=== PATIENT | female | born 1950 | race African-American/Black ===

== ENCOUNTER 2020-03-12 09:57 | Inpatient (IN) ==
[2020-03-12] MEDS ORDERED: GLUCAGON 1 MG VIAL IM PRN ×2 (15:44)
[2020-03-12] MEDS ORDERED: ONDANSETRON 4 MG/2 ML VIAL IV PRN (15:44)
[2020-03-12] MEDS ORDERED: DEXTROSE 50% 25 GM/50 ML VIAL IV PRN ×2 (15:44)
[2020-03-12 16:24] LABS: Basophils % 0.7 % (0.0-0.8); Eosinophils # 0.4 10*3/uL (0.0-0.87); Eosinophils % 5.8 % (0.00-10.9); Hematocrit 34.7 VOL% (35.7-47.0); Immature Granulocytes % 0.3 %; Immature Granulocytes Absolute 0.02 #; Lymphocytes # 2.1 10*3/uL (1.4-4.0); Mean Corpuscular HGB Conc 31.7 GM/DL (32-36); Mean Corpuscular Volume 87.8 FL (87-102); Mean Platelet Volume 12.6 FL (9.6-12.0); Neutrophils % 46.2 % (38.7-73.9); Platelet Count 195 T/CUMM (130-400); Red Blood Count 3.95 MC/CUMM (3.8-5.5); White Blood Count 6.1 T/CUMM (4-12)
[2020-03-12 16:55] LABS: Risk Ratio 6.14; VLDL CHOLESTEROL 42.2 MG/DL
[2020-03-12 17:01] LABS: Alanine Aminotransferase 23 U/L (13-56); Albumin 3.6 G/DL (3.4-5.0); Alkaline Phosphatase 166 U/L (45-117); Aspartate Amino Transferase 24 U/L (0-37); Bilirubin,Total < 0.39 MG/DL (0.2-1.0); Blood Urea Nitrogen 81 MG/DL (7-18); Calcium 9.9 MG/DL (8.5-10.1); Estimated Glom Filtration Rate 7 ML/MIN; Glucose 164 MG/DL (74-106); Osmolality,Calculated 297.1 MOS/KG (273-304); Total Protein 8.4 G/DL (6.4-8.3)
[2020-03-12] MEDS: INSULIN LISPRO 100 UNIT/ML SUBCUT SCH ×2 (17:22→23:15)
[2020-03-12] MEDS ORDERED: SODIUM POLYSTYRENE SULFATE 15 GM/60 ML BOTTLE PO ONE (17:40)
[2020-03-12] MEDS: SODIUM CHLORIDE 0.9% 1,000 ML IV SCH (22:47)
[2020-03-12] MEDS: hydrALAZINE 20 MG/1 ML VIAL IV PRN (23:22)
[2020-03-13 08:34] LABS: Basophils % 0.6 % (0.0-0.8); Eosinophils # 0.4 10*3/uL (0.0-0.87); Eosinophils % 6.5 % (0.00-10.9); Hematocrit 32.5 VOL% (35.7-47.0); Hemoglobin 10.1 GM/DL (12.0-16.0); Immature Granulocytes % 0.1 %; Immature Granulocytes Absolute 0.01 #; Lymphocytes # 2.8 10*3/uL (1.4-4.0); Lymphocytes % 40.4 % (21.3-54.2); Mean Corpuscular HGB Conc 31.1 GM/DL (32-36); Mean Platelet Volume 11.8 FL (9.6-12.0); Monocytes % 12.6 % (1.7-12.7); Neutrophils % 39.8 % (38.7-73.9); Platelet Count 176 T/CUMM (130-400); Red Blood Count 3.65 MC/CUMM (3.8-5.5); Red Cell Distribution Width 14.7 % (9.3-17.3); White Blood Count 6.8 T/CUMM (4-12)
[2020-03-13 08:56] LABS: Calcium 9.5 MG/DL (8.5-10.1); Osmolality,Calculated 304.8 MOS/KG (273-304)
[2020-03-13] MEDS: hydrALAZINE 20 MG/1 ML VIAL IV PRN (09:33)
[2020-03-13] MEDS: INSULIN LISPRO 100 UNIT/ML SUBCUT SCH ×4 (09:36→21:34)
[2020-03-13] MEDS: SODIUM CHLORIDE 0.9% 1,000 ML IV SCH (10:35)
[2020-03-13] MEDS ORDERED: ALPRAZolam 0.5 MG TABLET PO PRN (13:18)
[2020-03-13] MEDS ORDERED: NON-FORMULARY MEDICATION (Levalbuterol Tartrate [Xopenex Hfa] 1 PUFF) INH SCH (13:30)
[2020-03-13] MEDS: NEBIVOLOL 10 MG TABLET PO SCH (14:57)
[2020-03-13] MEDS: amLODIPine 5 MG TABLET PO SCH (14:57)
[2020-03-13] MEDS: HydrOXYzine PAMOATE 25 MG CAPSULE PO SCH ×2 (17:33→21:34)
[2020-03-13] MEDS: ATORVASTATIN 40 MG TABLET PO SCH (21:34)
[2020-03-14] MEDS: SODIUM CHLORIDE 0.9% 1,000 ML IV SCH ×2 (04:31→19:47)
[2020-03-14 06:34] LABS: Basophils # 0.1 10*3/uL (0.0-0.2); Basophils % 0.9 % (0.0-0.8); Eosinophils # 0.3 10*3/uL (0.0-0.87); Hematocrit 28.8 VOL% (35.7-47.0); Hemoglobin 8.9 GM/DL (12.0-16.0); Immature Granulocytes % 0.2 %; Immature Granulocytes Absolute 0.01 #; Lymphocytes # 2.5 10*3/uL (1.4-4.0); Lymphocytes % 43.5 % (21.3-54.2); Mean Corpuscular HGB Conc 30.9 GM/DL (32-36); Mean Corpuscular Volume 88.6 FL (87-102); Mean Platelet Volume 11.9 FL (9.6-12.0); Monocytes % 12.7 % (1.7-12.7); Neutrophils % 36.7 % (38.7-73.9); Platelet Count 159 T/CUMM (130-400); Red Blood Count 3.25 MC/CUMM (3.8-5.5); Red Cell Distribution Width 14.6 % (9.3-17.3); White Blood Count 5.7 T/CUMM (4-12)
[2020-03-14 06:55] LABS: Eosinophils 8 % (0-10); Hypochromasia 1+; Lymphocytes 38 % (20-55); Platelet Estimate Adequate; Segmented Neutrophils 39 % (50-85); Total Cells Counted 100
[2020-03-14 06:59] LABS: Calcium 9.2 MG/DL (8.5-10.1); Osmolality,Calculated 305.4 MOS/KG (273-304)
[2020-03-14] MEDS ORDERED: FUROSEMIDE 40 MG TABLET PO SCH (09:00)
[2020-03-14] MEDS ORDERED: amLODIPine 5 MG TABLET PO SCH (09:00)
[2020-03-14] MEDS ORDERED: NEBIVOLOL 10 MG TABLET PO SCH (09:00)
[2020-03-14] MEDS: NEBIVOLOL 10 MG TABLET PO SCH (09:14)
[2020-03-14] MEDS: HydrOXYzine PAMOATE 25 MG CAPSULE PO SCH ×4 (09:14→22:01)
[2020-03-14] MEDS: PANTOPRAZOLE 40 MG TABLET PO SCH (09:14)
[2020-03-14] MEDS: INSULIN LISPRO 100 UNIT/ML SUBCUT SCH ×4 (09:15→22:01)
[2020-03-14] MEDS: amLODIPine 5 MG TABLET PO SCH ×2 (09:15→22:01)
[2020-03-14] MEDS: ASPIRIN EC 81 MG TABLET PO SCH (09:15)
[2020-03-14] MEDS: MONTELUKAST 10 MG TABLET PO SCH (09:15)
[2020-03-14] MEDS: ALBUTEROL 2.5 MG/3 ML NEB RESP TX SCH (10:00)
[2020-03-14] MEDS: hydrALAZINE 20 MG/1 ML VIAL IV PRN (12:37)
[2020-03-14] MEDS ORDERED: hydrALAZINE 20 MG/1 ML VIAL IV ONE (15:06)
[2020-03-14] MEDS: ATORVASTATIN 40 MG TABLET PO SCH (22:00)
[2020-03-14] MEDS: ACETAMINOPHEN 325 MG TABLET PO PRN (22:00)
[2020-03-15 05:38] LABS: Basophils % 0.7 % (0.0-0.8); Eosinophils # 0.4 10*3/uL (0.0-0.87); Eosinophils % 6.6 % (0.00-10.9); Immature Granulocytes % 0.3 %; Immature Granulocytes Absolute 0.02 #; Lymphocytes # 2.6 10*3/uL (1.4-4.0); Lymphocytes % 42.5 % (21.3-54.2); Mean Corpuscular Volume 87.9 FL (87-102); Mean Platelet Volume 10.9 FL (9.6-12.0); Monocytes % 10.7 % (1.7-12.7); Neutrophils % 39.2 % (38.7-73.9); Platelet Count 149 T/CUMM (130-400); Red Cell Distribution Width 14.6 % (9.3-17.3); White Blood Count 6.1 T/CUMM (4-12)
[2020-03-15 06:02] LABS: Calcium 9.3 MG/DL (8.5-10.1); Eosinophils 6 % (0-10); Hypochromasia 2+; Lymphocytes 36 % (20-55); Microcytosis Slight; Osmolality,Calculated 302.1 MOS/KG (273-304); Platelet Estimate Adequate; Segmented Neutrophils 50 % (50-85); Total Cells Counted 100
[2020-03-15] MEDS: ALBUTEROL 2.5 MG/3 ML NEB RESP TX SCH (06:48)
[2020-03-15] MEDS: NEBIVOLOL 10 MG TABLET PO SCH (08:37)
[2020-03-15] MEDS: ASPIRIN EC 81 MG TABLET PO SCH (08:38)
[2020-03-15] MEDS: HydrOXYzine PAMOATE 25 MG CAPSULE PO SCH (08:38)
[2020-03-15] MEDS: amLODIPine 5 MG TABLET PO SCH (08:38)
[2020-03-15] MEDS: INSULIN LISPRO 100 UNIT/ML SUBCUT SCH ×2 (08:38→12:29)
[2020-03-15] MEDS: MONTELUKAST 10 MG TABLET PO SCH (08:38)
[2020-03-15] MEDS: PANTOPRAZOLE 40 MG TABLET PO SCH (08:38)
[2020-03-15] MEDS: ACETAMINOPHEN 325 MG TABLET PO PRN (11:18)
[2020-03-15 12:04] VITALS: BP 160/80
== END 2020-03-15 12:20 | disposition home health service (06) | DRG 684 ==
LOC: SUATTDRO 10:59 → N.TELEN 10:59
PROVIDERS: ADMIT Internal Medicine; ATTEND Internal Medicine